=== PATIENT | female | born 1985 | race Caucasian/White ===

== ENCOUNTER → 2019-04-05 | Outpatient (REF) | payer OTHER | LOC: M SFHCLERA 16:17 | PROVIDERS: ATTEND Physician Assistant | DX: N39.0 Urinary tract infection, site not specified (principal) ==

== ENCOUNTER → 2019-09-02 | Outpatient (CLI) | payer OTHER ==
--- NOTE | 2019-09-02 13:47 | REP ---
Two-view chest: 09/02/2019. Indication: Dyspnea. Cough. Comparison: None. Findings: The lungs are free of airspace consolidation. There is no pleural effusion or pneumothorax. The cardiomediastinal silhouette is unremarkable. There is a sub 5 mm suspected pulmonary nodule only appreciated on the lateral image which may represent a granuloma, however, chest CT may be indicated. Please correlate. Impression: No acute cardiopulmonary process. Possible pulmonary nodule as described above. Electronically Signed by [place] DO 09/02/2019 01:39 P
== END ==
LOC: M LRY 13:18
PROVIDERS: ATTEND Physician Assistant
DX: R91.8 Other nonspecific abnormal finding of lung field (principal)